=== PATIENT | female | born 1945 | race Caucasian/White ===

== ENCOUNTER 2017-05-08 03:54 | Emergency (ER) | payer MEDICARE ==
[~2017-05-08] VITALS: Ht 162.6 cm; Wt 44.5 kg
[~2017-05-08 03:54] MED LIST: ALBU8.5H2 INHALATION; PRE625 PO
[2017-05-08 03:59] VITALS: BP 156/89; PULSE 77; RESP 22; O2SAT 97
--- NOTE | 2017-05-08 04:29 | ED.REPORT ---
HPI-Abd Pain F 40 and Over Date of Service May 08, 2017 ED Provider: Dr. Enriquez Pt is a 71 year old female with a hx of kidney stones presenting to the ED complaining of left flank pain and nausea sudden onset at 0100 this morning. She states that these symptoms are typical of her kidney stones. Denies any fever, chills, SOB, wheezing, vomiting or diarrhea. Nursing Notes Stated Complaint: POSS KIDNEY STONE Chief Complaint: Female Abdominal Pain Nursing Notes Reviewed: Yes Allergies: Coded Allergies: etodolac (Verified Allergy, Severe, anaphylaxis/HIVES, 06/20/15) ketamine (Verified Adverse Reaction, Unknown, Agitation, 05/28/16) Scheduled Albuterol HFA (Proair HFA) 8.5 Gm Hfa.aer.ad 2 PUFFS INHALATION Q4H Estrogens Conjugated (Premarin) 0.625 Mg Tablet 0.625 MG PO Q48 Tamsulosin (Flomax) 0.4 Mg Capsule 0.4 MG PO DAILY Scheduled PRN Ondansetron ODT (Ondansetron ODT) 8 Mg Tab.rapdis 4-8 MG PO QID PRN PRN angela General Time Seen by MD: 04:34 Chief Complaint Flank pain left Hx Obtained From: Patient Arrived By: Walk-in Sudden in Onset?: Yes Onset Occurred: 1 - 4 hours ago Symptom Duration: Since onset Progression since Onset: Constant Location: : Flank left Quality: Painful Severity: Current: Severe Severity: Maximum: Severe Recent Healthcare: No recent doctor visit, No recent hospitalization Similar Sx Previous: Yes Past Medical History Past Medical History Notes: Patient underwent a right uteroscopy, right lithotripsy, and right stent placement on 06/15/[address] Santos. Patient had this stent removed on 06/17/2015. CT scan on 06/22/2015 showed moderate right hydronephrosis and hydroureter compared to 06/06/2015. The largest 9 mm stone in right kidney seen on 06/06/2015 is no longer present. Past Medical History Hx of kidney stones cataracts dysphagia Hx sinusitis TMJ (s/p surgical correction) Hx Diverticulitis GERD Hx UTI Blood transfusion Reports: GERD Past Surgical History lithotripsy and basket retrieval Reports: Cholecystectomy Smoking History Former Smoker Social History Alcohol Use: 1-3 per week Drug Use: Denies drug use Other Social History: Good social support, Ambulatory Status Independent Review of Systems Constitutional: Denies: Chills, Fever Respiratory: Denies: Shortness of breath, Wheezing GI: Reports: Nausea, Denies: Diarrhea, Vomiting Female: Reports: Flank pain Complete sys rev & neg: except as marked. Physical Exam Vital Signs Vital Signs (First) Date Time Temp Pulse Resp B/P Pulse Ox O2 Delivery O2 Flow Rate FiO2 05/08/17 03:59 36.1 77 22 156/89 97 Room Air Initial VS: Reviewed, Vital signs normal Head / Eyes: Atraumatic, Normocephalic, PERRL ENT: Mucous membranes moist, Conjunctiva normal, No scleral icterus Neck: Supple, Non-tender, Full range of motion Extremities: Vascular intact, Neuro intact, No swelling, No tenderness Skin: Warm, Dry, No cyanosis Neurologic: Alert, Oriented, Nonfocal Psychiatric: Mood/affect normal, Behavior normal, Normal thought content General/Constitutional: Awake, Alert, No acute distress Respiratory / Chest: Breath sounds NL, Breath sounds = bilat, No respiratory distress, No rales, No rhonchi, No wheezing, No stridor Cardiovascular: Heart rate NL, Regular rhythm, Heart sounds NL, Peripheral circulation NL Abdomen: Atraumatic, Soft, Non-tender, No guarding, No rebound Back: Atraumatic, Inspection NL, Full range of motion, No CVA tenderness Interpretation & Diagnostics Lab Results Interpretation Result Diagram: 05/08/17 0420 05/08/17 0420 Test 05/08/17 04:20 05/08/17 04:35 White Blood Count 5.3th/mm3 (3.8-10.1) Red Blood Count 3.81mil/mm3 (3.90-5.20) Hemoglobin 12.8g/dL (12.0-15.6) Hematocrit 37.4% (35.0-46.0) Mean Corpuscular Volume 98.2fL (81-100) Mean Corpuscular Hemoglobin 33.6pg (27.0-35.0) Mean Corpuscular Hemoglobin Concent 34.2% (32.0-37.0) Red Cell Distribution Width 12.7% (12.3-15.4) Platelet Count 196bil/L (150-400) Neutrophils (%) (Auto) 66.5% (40-74) Lymphocytes (%) (Auto) 20.8% (14-46) Monocytes (%) (Auto) 9.8% (4-12) Eosinophils (%) (Auto) 1.9% (0-5) Basophils (%) (Auto) 0.8% (0-3) Sodium Level 142mEq/L (134-144) Potassium Level 4.1mEq/L (3.5-5.2) Chloride Level 106mEq/L (97-108) Carbon Dioxide Level 24mmol/L (18-29) Blood Urea Nitrogen 21mg/dL (8-27) Creatinine 0.84mg/dL (0.57-1.00) Estimat Glomerular Filtration Rate 95mL/min (>59) Glucose Level 130mg/dL (60-99) Calcium Level 8.9mg/dL (8.5-10.1) Magnesium Level 2.0mg/dL (1.6-2.6) Total Bilirubin 0.2mg/dL (0.0-1.2) Aspartate Amino Transf (AST/SGOT) 20U/L (0-50) Alanine Aminotransferase (ALT/SGPT) 9U/L (0-32) Alkaline Phosphatase 56U/L (25-165) Total Protein 6.6g/dL (6.4-8.4) Albumin 4.4g/dL (3.4-5.0) Lipase 52U/L (13-60) Urine Color Yellow (YELLOW) Urine Appearance Cloudy (CLEAR,HAZY) Urine pH 6.0 (5.0-8.0) Urine Specific Lawrence 1.025 (1.003-1.035) Urine Protein Negativemg/dL (NEG,TRACE) Urine Glucose (UA) Negativemg/dL (NEGATIVE) Urine Ketones Negativemg/dL (NEGATIVE) Urine Occult Blood Large (NEGATIVE) Urine Nitrite Negative (NEGATIVE) Urine Bilirubin Negative (NEGATIVE) Urine Urobilinogen Normalmg/dL (NORMAL) Urine Leukocyte Esterase Trace (NEGATIVE) Urine RBC 11-50/hpf (0-2) Urine WBC 0-5/hpf (0-5) Urine Epithelial Cells Occasional/hpf (NONE-MOD) Urine Crystals Oxalic acid crystals (NONE Urine Bacteria Moderate/hpf (NONE-FEW) Urine Hyaline Casts None/lpf (NONE) Urine Granular Casts None seen (NONE SEEN) Urine Waxy Casts None seen (NONE SEEN) Urine Red Blood Cell Casts None seen (NONE SEEN) Urine White Blood Cell Casts None seen (NONE SEEN) Urine Mucus Present (None Seen) Urine Trichomonas None seen (NONE SEEN) Urine Yeast None (NONE SEEN) Urinalysis Comment None Urine Culture Reflexed Indicated Lab Results Interpretation: >50 rbc per hpf, [address] Abd / Pelvis Interpretation CONCLUSION: Mild left hydroureternephrosis associated with a 4 x 2 x 2 mm stone in the left ureterovesical junction. Bilateral nephrolithiasis. Cholecystectomy and hysterectomy. Emphysema. This report was transmitted to the emergency room at 05/08/2017 - 5:10:22 AM PDT. Study type: Abdominal CT no contrast Interpretation / Wet Read by: Interpret - Radiologist Re-Eval/Medical Decision Med Decision/Clinical Course 71-year-old female with left flank pain and a history of kidney stone. She has hematuria. She is found to have a 2 x 2 by fours millimeter distal left ureteral stone with hydrourete She is being discharged home with pain medication and Flomax to follow up with her urologist. Re-Evaluation/Progress : Time of Eval: 05:18 Patient Status: Condition improved Re-Evaluation/Progress Note: Informed of CT results. Pt reports that in the past, none of her kidney stones have passed on their own. Discussed plan for discharge. Pt understands and agrees with plan. Counseled Regarding: Diagnosis, Lab results, Need for follow-up, When/why to return to ED Discharge & Departure Primary Impression: Left ureteral calculus Disposition: Home Discharge Condition All VS Reviewed: Yes Condition: Improved Patient Instructions: Renal Colic (ED) Additional Instructions: There is a small 2 x 2 x 4 mm stone at the end of the left ureter, ready to pass into the bladder. Drink plenty of fluids. Flomax 0.4 mg daily for 2 or 3 days to help the stone pass. Hydrocodone/acetaminophen 5/325, one or 2 pills every 4-6 hours as needed for severe pain, #10 dispensed. Ondansetron 4 mg dissolved orally every 6 hours as needed for nausea and vomiting, #4 dispensed and #10 prescription written. Follow-up with your urologist in the next couple of days for recheck. Referrals: Lorena Beckett MD (PCP) Scribe Attestation Portions of this note were transcribed by Mercy Roberts. I, Dr. Enriquez personally performed the history, physical exam and medical decision-making; I reviewed and confirmed the accuracy of the information in the transcribed note. Signed by: Michael James, 05/08/2017. copies to: Lorena Beckett MD, Goran Medrano MD May 08, 2017 04:29 [facility] May 08, 2017 04:41
[2017-05-08] MEDS ORDERED: HYDROmorphone 0.5 mg/0.5 mL iSecure Syringe IVPUSH PRN (04:30)
[2017-05-08] MEDS ORDERED: Ondansetron 2 mg/mL 2 mL Inj IVPUSH PRN (04:30)
[2017-05-08 04:45] LABS: BASOPHILS % (AUTO) 0.8 % (0-3); EOSINOPHILS % (AUTO) 1.9 % (0-5); MONOCYTES % (AUTO) 9.8 % (4-12); Mean Corpuscular Hemoglobin 33.6 pg (27.0-35.0); Mean Corpuscular Volume 98.2 fL (81-100); NEUTROPHILS % (AUTO) 66.5 % (40-74); Platelet Count 196 bil/L (150-400)
[2017-05-08 04:54] LABS: APPEARANCE,URINE CLOUDY (CLEAR,HAZY); COLOR,URINE YELLOW (YELLOW); OCCULT BLOOD,URINE LARGE (NEGATIVE)
[2017-05-08 04:55] LABS: UROBILINOGEN,URINE NORMAL (NORMAL)
[2017-05-08] MEDS ORDERED: _HYDROcodone/APAP 5-325 mg Tablet PO PRN (05:30)
[2017-05-08] MEDS ORDERED: _Ondansetron ODT 4 mg Tablet PO PRN (05:30)
[2017-05-08] MEDS ORDERED: ONDA8TAB10 PO (05:36)
[2017-05-08] MEDS ORDERED: TAMS0.4C98 PO (05:37)
[2017-05-08 06:26] VITALS: BP 132/74; PULSE 84; RESP 18; O2SAT 98
--- NOTE | 2017-05-08 10:10 | DRSVH ---
PROCEDURE: CT KUB ([id number]) INDICATIONS: left flank pain TECHNIQUE: Noncontrast 5 mm thick sections acquired from the diaphragms to the symphysis. 5 mm thick coronal an d sagittal reformats were then performed. For radiation dose reduction, the following was used: aut omated exposure control, adjustment of mA and/or kV according to patient size. COMPARISON: [facility], CT, ABD/PELVIS W/CON (PNL), 03/26/2014, 13:49. [facility], CT, CT KUB, 06/06/2015, 15:52. [facility], CT, CT KUB, 06/22/2015, 12:50. FINDINGS: Image quality: Excellent. Lung bases: Lung bases are clear. Severe emphysematous changes noted in lung bases bilaterally. Hear t size is normal. Urinary system: Both kidneys are normal in size. There is a 4 x 2 mm stone in the distal left urete r at the UVJ causing mild left-sided hydroureteronephrosis. Small, bilateral, approximately 1-2 mm di ameter nonobstructing renal stones are noted. No right-sided hydronephrosis. Bladder wall thickness i s normal; no calcified bladder stones. Other solid organs: Liver and spleen are normal in size. Gallbladder is surgically absent. Pancrea s is normal in contours. No adrenal nodules. Peritoneum and bowel: Unenhanced bowel loops demonstrate normal wall thickness and caliber. No free fluid or air. Nodes and vessels: No retroperitoneal or mesenteric adenopathy by size criteria. Aorta and inferior vena cava are normal in caliber. Scattered atherosclerotic calcifications involving the abdominal an d pelvic vasculature. Abdominal wall: No ventral hernias. Pelvis: No free pelvic fluid. No inguinal hernias or adenopathy. Uterus is absent. Bones: No suspicious bony lesions. No vertebral body compression fractures. Spine degenerative disc disease and facet arthropathy. IMPRESSION: 1. 4 x 2 mm distal left ureteral stone causing mild left-sided hydronephrosis. 2. Small, approximately 1-2 mm in diameter nonobstructing bilateral renal stones. Dictated by: Soni Oropeza MD, PhD on 05/08/2017 at 10:04 Approved by: Soni Oropeza MD, PhD on 05/08/2017 at 10:09
== END 2017-05-08 06:30 | disposition home or self-care (01) ==
LOC: SED 03:54
DX: N20.1 Calculus of ureter (principal); R31.9 Hematuria, unspecified; K21.9 Gastro-esophageal reflux disease without esophagitis; Z88.8 Allergy status to other drugs, medicaments and biological substances; Z87.891 Personal history of nicotine dependence; Z87.440 Personal history of urinary (tract) infections; Z87.442 Personal history of urinary calculi
CPT/HCPCS: 36415; 74176; 80053; 81000; 83690; 83735; 85025; 87086; 87088; 96374; 96375; 99285; J1170; J2405